=== PATIENT | female | born 1955 | race Caucasian/White ===

== ENCOUNTER 2017-06-06 00:34 | Emergency (ER) | payer BC ==
[2017-06-06] MEDS ORDERED: Etomidate 2 MG/ML 20 ML SDV IVPUSH ONE (00:35)
[2017-06-06] MEDS ORDERED: Rocuronium 50 MG/5 ML Vial IV ONE (00:35)
[2017-06-06] MEDS ORDERED: Succinylcholine 200 MG/10 ML MDV IV ONE (00:35)
[2017-06-06] MEDS ORDERED: Sodium Chloride 0.9% 2.5 ML Syringe FLUSH PRN (00:37)
[2017-06-06] MEDS ORDERED: Aspirin 300 MG Supp RECTAL ONE (00:37)
[2017-06-06] MEDS ORDERED: Sodium Chloride 0.9% 10 ML Syringe FLUSH PRN (00:37)
[2017-06-06] MEDS ORDERED: Nitroglycerin 2% Oint 1 GM UD Packet TOP ONE (00:37)
--- NOTE | 2017-06-06 00:43 | EDM.PDOC ---
ED HPI GENERAL MEDICAL PROBLEM - General Stated Complaint: CHEST PAINS Time Seen by Provider: 06/06/17 00:36 - History of Present Illness INITIAL COMMENTS - FREE TEXT/NARRATIVE: HISTORY AND PHYSICAL: History of present illness: Patient 62-year-old female with extensive past medical history including three- vessel cardiac bypass surgery and comes in with 3 days of persistent chest pain is nitroglycerin until she ran out yesterday and comes in now with severe shortness of breath diaphoresis and persistent chest pain on arrival patient is diaphoretic and pale with severe respiratory distress pulse oxes 75 on room air patient is combative every 3 Gart to nonrebreather mask. She speaks in one-word sentences when able and continues to have labored breathing I discussed with patient and intubation and transfer to tertiary care center they agree. Review of systems: As per history of present illness and below otherwise all systems reviewed and negative. Past medical history: As per history of present illness and as reviewed below otherwise noncontributory. Surgical history: As per history of present illness and as reviewed below otherwise noncontributory. Social history: No reported history of drug or alcohol abuse. Family history: As per history of present illness and as reviewed below otherwise noncontributory. Physical exam: HEENT: Atraumatic, normocephalic, pupils reactive, negative r scleral icterus, mucous membranes moist, throat clear, neck supple, nontender, trachea midline. Lungs: Coarse bilaterally with basilar crackles, breath sounds equal bilaterally , chest nontender. Heart: S1S2, regular, negative for clicks, rubs, or JVD. Abdomen: Soft, nondistended, nontender. Negative for masses or hepatosplenomegaly. Negative for costovertebral tenderness. Pelvis: Stable nontender. Genitourinary: Deferred. Rectal: Deferred. Extremities: Atraumatic, negative for cords or calf pain. Neurovascular unremarkable. Neuro: Awake, combative moves all extremities follows commands limited but grossly nonfocal exam Diagnostics: CBC CMP troponin and BNP PT/INR chest x-ray EKG lactic acid ABG Therapeutics: IV O2 monitor patient was intubated with a 7.5 ET tube with rapid sequence intubation patient tolerated procedure well post intubation chest x-ray is ordered and pending Impression: #1 history of coronary artery disease #2 chest pain #3 acute respiratory failure Definitive disposition and diagnosis as appropriate pending reevaluation and review of above. ED ROS GENERAL - Review of Systems Review Of Systems: ROS reveals no pertinent complaints other than HPI. ED EXAM, GENERAL - Physical Exam Exam: See Below (See dictation) Course - Orders/Labs/Meds Orders: Active Orders 24 hr Category Date Time Status Cardiac Monitoring [RC] . DIRECTED Care 06/06/17 00:37 Ordered EKG Documentation Completion [RC] STAT Care 06/06/17 00:37 Ordered Pulse Oximetry [RC] ASDIRECTED Care 06/06/17 00:37 Ordered Chest 1V Frontal [CR] Stat Exams 06/06/17 00:37 Ordered B-TYPE NATRIURETIC PEPTIDE,BNP [CHEM] Stat Lab 06/06/17 00:37 Ordered BLOOD GAS ARTERIAL [BG] Stat Lab 06/06/17 00:37 Ordered CBC WITH AUTO DIFF [HEME] Stat Lab 06/06/17 00:37 Ordered COMPREHENSIVE METABOLIC PN,CMP [CHEM] Stat Lab 06/06/17 00:37 Ordered INR,PT,PROTHROMBIN TIME [COAG] Stat Lab 06/06/17 00:37 Ordered LACTIC ACID,WHOLE BLOOD [BG] Stat Lab 06/06/17 00:37 Ordered TROPONIN I [CHEM] Stat Lab 06/06/17 00:37 Ordered UA W/MICROSCOPIC [URIN] Stat Lab 06/06/17 00:37 Uncollected Aspirin Med 06/06/17 00:37 Once 300 mg RECTAL ONETIME ONE Nitroglycerin [Nitro-Bid 2%] Med 06/06/17 00:37 Once 1 gm TOP ONETIME ONE Sodium Chloride 0.9% [Normal Saline] 1,000 ml Med 06/06/17 00:45 Ordered IV STAT Sodium Chloride 0.9% [Saline Flush] Med 06/06/17 00:37 Ordered 10 ml FLUSH ASDIRECTED PRN Sodium Chloride 0.9% [Saline Flush] Med 06/06/17 00:37 Ordered 2.5 ml FLUSH ASDIRECTED PRN Saline Lock Insert [OM.PC] Stat Oth 06/06/17 00:37 Ordered Departure - Departure Time of Disposition: 00:42 Disposition: DC/Tfer to [facility] Condition: Critical Clinical Impression: Chest pain, Acute respiratory failure - Discharge Information - My Orders Last 24 Hours: My Active Orders 06/06/17 00:37 Cardiac Monitoring [RC] . DIRECTED EKG Documentation Completion [RC] STAT Pulse Oximetry [RC] ASDIRECTED Chest 1V Frontal [CR] Stat B-TYPE NATRIURETIC PEPTIDE,BNP [CHEM] Stat BLOOD GAS ARTERIAL [BG] Stat CBC WITH AUTO DIFF [HEME] Stat COMPREHENSIVE METABOLIC PN,CMP [CHEM] Stat INR,PT,PROTHROMBIN TIME [COAG] Stat LACTIC ACID,WHOLE BLOOD [BG] Stat TROPONIN I [CHEM] Stat UA W/MICROSCOPIC [URIN] Stat Aspirin 300 mg RECTAL ONETIME ONE Nitroglycerin [Nitro-Bid 2%] 1 gm TOP ONETIME ONE Sodium Chloride 0.9% [Saline Flush] 10 ml FLUSH ASDIRECTED PRN Sodium Chloride 0.9% [Saline Flush] 2.5 ml FLUSH ASDIRECTED PRN Saline Lock Insert [OM.PC] Stat 06/06/17 00:45 Sodium Chloride 0.9% [Normal Saline] 1,000 ml IV STAT - Assessment/Plan Last 24 Hours: My Active Orders 06/06/17 00:37 Cardiac Monitoring [RC] . DIRECTED EKG Documentation Completion [RC] STAT Pulse Oximetry [RC] ASDIRECTED Chest 1V Frontal [CR] Stat B-TYPE NATRIURETIC PEPTIDE,BNP [CHEM] Stat BLOOD GAS ARTERIAL [BG] Stat CBC WITH AUTO DIFF [HEME] Stat COMPREHENSIVE METABOLIC PN,CMP [CHEM] Stat INR,PT,PROTHROMBIN TIME [COAG] Stat LACTIC ACID,WHOLE BLOOD [BG] Stat TROPONIN I [CHEM] Stat UA W/MICROSCOPIC [URIN] Stat Aspirin 300 mg RECTAL ONETIME ONE Nitroglycerin [Nitro-Bid 2%] 1 gm TOP ONETIME ONE Sodium Chloride 0.9% [Saline Flush] 10 ml FLUSH ASDIRECTED PRN Sodium Chloride 0.9% [Saline Flush] 2.5 ml FLUSH ASDIRECTED PRN Saline Lock Insert [OM.PC] Stat 06/06/17 00:45 Sodium Chloride 0.9% [Normal Saline] 1,000 ml IV STAT
[2017-06-06] MEDS ORDERED: Sodium Chloride 0.9% 1,000 ML IV SCH (00:45)
[2017-06-06 01:18] LABS: CHLORIDE,CL 109 mmol/L (98-110); SODIUM,NA 138 mmol/L (136-146)
--- NOTE | 2017-06-06 20:13 | CR ---
EXAM DATE: 06/06/17 PATIENT'S AGE: 62 Patient: SABRINA SHELDON Facility: [place], [place] Site . Site : [id number] Study: XRay Chest [id number]/22/2017 1:24:05 AM Ordering Physician: Doctor Singh Final Report: INDICATION: Respiratory failure TECHNIQUE: Chest 1 view. COMPARISON: None FINDINGS: Lines and tubes: The ET tube is in place with the tip 5.0 centimeters from the mil[place]. A feeding tube tip terminates in the fundus of the stomach. Cardiovascular and mediastinum: Heart size and vasculature are normal in caliber and appearance. Mediastinum is within normal limits. Sternotomy wires noted. Lungs and pleural space: Lungs are clear. No sign of infiltrate or mass. No sign of pleural effusion. No pneumothorax. Bones and soft tissues: No significant findings. IMPRESSION: ET tube in place with the tip 5.0 centimeters from the milton. No acute pulmonary or cardiac abnormalities. Dictated by Grant Davis MD @ 06/06/2017 1:27:31 AM Dictated by: Grant Davis MD @ 06/06/2017 01:27:39 (Electronic Signature) Report Signed by Proxy. ROGELIO
== END 2017-06-06 01:24 ==
LOC: MW.ED 00:34
DX: J96.00 Acute respiratory failure, unspecified whether with hypoxia or hypercapnia (principal)
CPT/HCPCS: 31500; 36415; 51702; 71010; 80053; 81001; 83605; 83880; 84484; 85025; 85610; 99291; J0330; 99284